=== PATIENT | female | born 1990 | race Caucasian/White ===

== ENCOUNTER 2016-09-06 18:10 | Emergency (ER) | payer OTHER ==
[2016-09-06 19:35] LABS: HEMOGLOBIN 11.9 gm/dl (12.3-15.3); RED BLOOD COUNT 4.2 M/UL (4.00-5.10); WHITE BLOOD COUNT 11.3 K/UL (4.5-11.0)
[2016-09-06 19:50] LABS: BUN/CREATININE RATIO 11 (0-10)
== END 2016-09-06 23:29 | disposition home or self-care (01) ==
LOC: ER1 18:10
PROVIDERS: Emergency Medicine
DX: O20.0 Threatened abortion (principal); Z3A.01 Less than 8 weeks gestation of pregnancy
CPT/HCPCS: 36415; 76817; 80053; 81001; 83690; 84702; 84703; 85025; 87086; 99284

== ENCOUNTER 2020-07-11 16:58 | Emergency (ER) | payer OTHER ==
[~2020-07-11 16:58] MED LIST: ALBUTEROL2.5 MG/3 M INH; IPRATROPIU0.2 MG/1 M INH; PREDNISONE20 MG PO; PROVENTIL HFA6.7 GM INH; ROBITUSSIN DM UD5 ML PO; TESSALON PERLE100 MG PO
[2020-07-11 18:33] LABS: HEMOGLOBIN 13.2 gm/dl (12.3-15.3); RED BLOOD COUNT 4.7 M/UL (4.00-5.10); WHITE BLOOD COUNT 11.2 K/UL (4.5-11.0)
[2020-07-11 18:54] LABS: BUN/CREATININE RATIO 15 (0-10)
[2020-07-11] MEDS ORDERED: CEFUROXIME500 MG PO (19:55)
== END 2020-07-11 20:00 | disposition home or self-care (01) ==
LOC: ER1 16:58
PROVIDERS: Preventive Medicine Occupational Medicine
DX: N39.0 Urinary tract infection, site not specified (principal); Z87.442 Personal history of urinary calculi; Z88.0 Allergy status to penicillin
CPT/HCPCS: 36415; 73080; 80053; 81001; 84703; 85025; 85652; 86140; 87086; 96374; 96375; 99284; J0696; J1885; J7030

== ENCOUNTER 2020-09-13 15:51 | Emergency (ER) | payer OTHER ==
[~2020-09-13 15:51] MED LIST changes: +CEFUROXIME500 MG PO
[2020-09-13] MEDS ORDERED: NAPROSYN500 MG PO (17:05)
== END 2020-09-13 17:07 | disposition home or self-care (01) ==
LOC: ER1 15:51
DX: S63.501A Unspecified sprain of right wrist, initial encounter (principal); Z88.0 Allergy status to penicillin; W01.0XXA Fall on same level from slipping, tripping and stumbling without subsequent striking against object, initial encounter; Y92.009 Unspecified place in unspecified non-institutional (private) residence as the place of occurrence of the external cause
CPT/HCPCS: 73090; 73110; 96372; 99283; J1885

== ENCOUNTER 2021-01-01 19:47 | Emergency (ER) | payer OTHER ==
[~2021-01-01 19:47] MED LIST changes: +NAPROSYN500 MG PO
[2021-01-01 20:22] LABS: HEMOGLOBIN 12.9 gm/dl (12.3-15.3); RED BLOOD COUNT 4.54 M/UL (4.00-5.10); WHITE BLOOD COUNT 6.8 K/UL (4.5-11.0)
[2021-01-01 20:48] LABS: BUN/CREATININE RATIO 10 (0-10)
[2021-01-01] MEDS ORDERED: MUCINEX DM ER1 EACH PO (23:37)
[2021-01-01] MEDS ORDERED: PROAIR HFA8.5 GM INH (23:37)
[2021-01-01] MEDS ORDERED: CEPHALEXIN500 M1 PO (23:37)
== END 2021-01-01 23:50 | disposition home or self-care (01) ==
LOC: ER1 19:47
PROVIDERS: Physician Assistant
DX: U07.1 COVID-19 (principal); J20.8 Acute bronchitis due to other specified organisms; N39.0 Urinary tract infection, site not specified; I10 Essential (primary) hypertension; Z88.0 Allergy status to penicillin
CPT/HCPCS: 0240U; 71045; 80053; 81001; 82550; 82553; 83690; 83874; 83880; 84484; 84703; 85025; 87086; 93005; 99285

== ENCOUNTER 2021-01-08 17:52 | Emergency (ER) | payer OTHER ==
[~2021-01-08 17:52] MED LIST changes: +CEPHALEXIN500 M1 PO; +MUCINEX DM ER1 EACH PO; +PROAIR HFA8.5 GM INH
[2021-01-08 20:50] LABS: HEMOGLOBIN 13.6 gm/dl (12.3-15.3); RED BLOOD COUNT 5.15 M/UL (4.00-5.10); WHITE BLOOD COUNT 6.6 K/UL (4.5-11.0)
[2021-01-08 21:17] LABS: BUN/CREATININE RATIO 10 (0-10)
[2021-01-08] MEDS ORDERED: ZOFRAN ODT 4 MG4 MG PO (21:45)
[2021-01-08] MEDS ORDERED: NASONEX17 GM (22:34)
== END 2021-01-08 22:48 | disposition home or self-care (01) ==
LOC: ER1 17:52
PROVIDERS: Physician Assistant
DX: U07.1 COVID-19 (principal); I10 Essential (primary) hypertension; Z88.0 Allergy status to penicillin
CPT/HCPCS: 71045; 80053; 85025; 99285

== ENCOUNTER 2021-02-27 18:13 | Emergency (ER) | payer OTHER ==
[~2021-02-27 18:13] MED LIST changes: +NASONEX17 GM; +ZOFRAN ODT 4 MG4 MG PO
== END 2021-02-27 22:25 | disposition home or self-care (01) ==
LOC: ER1 18:13
DX: M25.561 Pain in right knee (principal)
CPT/HCPCS: 73562; 99283

== ENCOUNTER 2021-05-11 14:30 | Emergency (ER) | payer OTHER ==
[2021-05-11] MEDS ORDERED: CLEOCIN HCL150 MG PO (15:35)
[2021-05-11] MEDS ORDERED: HYDROCODON-ACE1 EAC4 PO (15:35)
== END 2021-05-11 15:43 | disposition home or self-care (01) ==
LOC: ER1 14:30
DX: K03.81 Cracked tooth (principal); K02.9 Dental caries, unspecified; K05.219 Aggressive periodontitis, localized, unspecified severity; I10 Essential (primary) hypertension; Z88.0 Allergy status to penicillin
CPT/HCPCS: 99283

== ENCOUNTER 2021-05-28 13:32 | Emergency (ER) | payer OTHER ==
[~2021-05-28 13:32] MED LIST changes: +CLEOCIN HCL150 MG PO; +HYDROCODON-ACE1 EAC4 PO
[2021-05-28] MEDS ORDERED: CEPHALEXIN500 MG PO (16:52)
== END 2021-05-28 17:05 | disposition home or self-care (01) ==
LOC: ER1 13:32
DX: J02.0 Streptococcal pharyngitis (principal); I10 Essential (primary) hypertension; Z88.0 Allergy status to penicillin; Z20.822 Contact with and (suspected) exposure to COVID-19
CPT/HCPCS: 0240U; 71045; 87081; 87880; 99283

== ENCOUNTER 2021-07-09 14:06 | Emergency (ER) | payer OTHER ==
[~2021-07-09 14:06] MED LIST changes: +CEPHALEXIN500 MG PO
[2021-07-09] MEDS ORDERED: CEPHALEXIN500 MG PO (16:30)
== END 2021-07-09 16:44 | disposition home or self-care (01) ==
LOC: ER1 14:06
DX: U07.1 COVID-19 (principal); J02.0 Streptococcal pharyngitis; I10 Essential (primary) hypertension; Z88.0 Allergy status to penicillin
CPT/HCPCS: 81001; 87081; 87880; 99283; U0003

== ENCOUNTER → 2021-08-18 | Outpatient (CLI) | payer OTHER | LOC: RAD 13:38 | DX: M54.2 Cervicalgia (principal); M54.6 Pain in thoracic spine; M54.50 Low back pain, unspecified; R05.3 Chronic cough; M47.814 Spondylosis without myelopathy or radiculopathy, thoracic region; M47.816 Spondylosis without myelopathy or radiculopathy, lumbar region | CPT/HCPCS: 71046; 72040; 72072; 72110 ==

== ENCOUNTER 2021-10-16 10:45 | Emergency (ER) | payer OTHER ==
[2021-10-16] MEDS ORDERED: NAPROSYN500 MG PO (12:36)
[2021-10-16] MEDS ORDERED: CEPHALEXIN500 M1 PO (12:36)
== END 2021-10-16 12:44 | disposition home or self-care (01) ==
LOC: ER1 10:45
DX: J02.9 Acute pharyngitis, unspecified (principal); R10.30 Lower abdominal pain, unspecified; K02.9 Dental caries, unspecified; K05.10 Chronic gingivitis, plaque induced; I10 Essential (primary) hypertension; Z87.440 Personal history of urinary (tract) infections; Z88.0 Allergy status to penicillin; Z20.822 Contact with and (suspected) exposure to COVID-19
CPT/HCPCS: 0240U; 71045; 81001; 84703; 87081; 87086; 87880; 99283

== ENCOUNTER 2021-10-18 10:24 | Emergency (ER) | payer OTHER ==
[2021-10-18 11:16] LABS: HEMOGLOBIN 12.9 gm/dl (12.3-15.3); RED BLOOD COUNT 4.58 M/UL (4.00-5.10); WHITE BLOOD COUNT 8.5 K/UL (4.5-11.0)
[2021-10-18 11:40] LABS: BUN/CREATININE RATIO 14 (0-10)
[2021-10-18] MEDS ORDERED: IBU600 MG PO (13:40)
== END 2021-10-18 14:25 | disposition home or self-care (01) ==
LOC: ER1 10:24
PROVIDERS: Emergency Medicine
DX: R07.81 Pleurodynia (principal)
CPT/HCPCS: 80053; 85025; 85379; 96374; 99284; J1885; Q9967

== ENCOUNTER 2022-02-14 14:40 | Emergency (ER) | payer OTHER ==
[~2022-02-14 14:40] MED LIST changes: +IBU600 MG PO
[2022-02-14 15:38] LABS: HEMOGLOBIN 13.1 gm/dl (12.3-15.3); RED BLOOD COUNT 4.64 M/UL (4.00-5.10); WHITE BLOOD COUNT 9.3 K/UL (4.5-11.0)
[2022-02-14 15:56] LABS: BUN/CREATININE RATIO 17 (0-10)
== END 2022-02-14 18:45 | disposition home or self-care (01) ==
LOC: ER1 14:40
PROVIDERS: Physician Assistant
DX: R10.12 Left upper quadrant pain (principal); E78.5 Hyperlipidemia, unspecified; I10 Essential (primary) hypertension; Z88.0 Allergy status to penicillin
CPT/HCPCS: 80053; 81001; 83690; 84703; 85025; 87086; 99284; Q9967